=== PATIENT | male | born 1975 | race Caucasian/White ===

== ENCOUNTER 2019-02-05 20:04 | Emergency (ER) | payer BC ==
[2019-02-05] MEDS ORDERED: Ketorolac 60 MG/2 ML SDV IM ONE ×2 (20:08→21:33)
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
--- NOTE | 2019-02-05 21:35 | CR ---
Indication: Injury and pain Technique: Right humerus 2 views Comparison: None Findings: Bones: Alignment is normal. No fractures or bone lesions. Joint spaces: Unremarkable. Soft tissues: Unremarkable. Impression: No sign of acute injury. Dictated by Amos Grewal MD @ Feb 05 2019 9:27PM Signed by Dr. Amos Grewal @ Feb 05 2019 9:34PM
--- NOTE | 2019-02-05 21:38 | CR ---
Indication: Injury and pain Technique: Right shoulder 3 views Comparison: None Findings/Impression: Bones: Mildly displaced fracture is in the distal head of the right clavicle. No other osseous abnormality. Joint spaces: Unremarkable. Soft tissues: Unremarkable. Dictated by Amos Grewal MD @ Feb 05 2019 9:34PM Signed by Dr. Amos Grewal @ Feb 05 2019 9:35PM
--- NOTE | 2019-02-05 21:42 | CR ---
INDICATION: Injury and pain TECHNIQUE: Chest and right ribs 4 views. COMPARISON: None FINDINGS: Cardiovascular and mediastinum: Heart size and vasculature are normal in caliber and appearance. Mediastinum is within normal limits. Lungs and pleural spaces: Lungs are clear. No sign of infiltrate or mass. No sign of pleural effusion. No pneumothorax. Bones and soft tissues: Detailed oblique images of the right ribs demonstrate nondisplaced fractures in the posterior ribs 3-6. Fracture is also in the distal head of the right clavicle. IMPRESSION: There are fractures in the right ribs 3 through 6 and distal head of the right clavicle. Remainder of the chest is unremarkable. Dictated by Amos Grewal MD @ Feb 05 2019 9:35PM Signed by Dr. Amos Grewal @ Feb 05 2019 9:40PM
== END 2019-02-05 22:50 | disposition home or self-care (01) ==
LOC: MW.ED 20:04
DX: S22.41XA Multiple fractures of ribs, right side, initial encounter for closed fracture (principal); S42.031A Displaced fracture of lateral end of right clavicle, initial encounter for closed fracture; V86.56XA Driver of dirt bike or motor/cross bike injured in nontraffic accident, initial encounter
CPT/HCPCS: 71101; 73030; 73060; 96372; 99283; J1885